=== PATIENT | male | born 1955 | race Caucasian/White ===

== ENCOUNTER 2018-10-01 11:12 | Inpatient (IN) | payer BC ==
[~2018-10-01] VITALS: Ht 175.3 cm; Wt 84.1 kg
[2018-10-01] MEDS ORDERED: normal saline 1000ML IV soln IVB ONE ×2 (12:15→12:25)
[2018-10-01] MEDS ORDERED: ondansetron/PF 4mg/2ml inj IV ONE ×2 (12:15→12:25)
[2018-10-01] MEDS: morphine 4 MG/ML inj SYRINge IV PRN ×2 (12:33→15:04)
[2018-10-01 12:39] LABS: BASOPHILS % (AUTO) 0.3 % (0-1); EOSINOPHILS % (AUTO) 0.2 % (0-6); HEMATOCRIT 33.9 % (42.0-52.0); HEMOGLOBIN 11.5 g/dl (14.0-17.9); LYMPHOCYTES # (AUTO) 0.5 X10'3 (1.1-4.8); LYMPHOCYTES % (AUTO) 5.9 % (21-51); MEAN CORPUSCULAR HEMOGLOBIN 28.1 PG (27.0-31.0); MEAN CORPUSCULAR HGB CONC 33.8 % (33.0-36.5); MEAN CORPUSCULAR VOLUME 83.2 FL (78-98); MEAN PLATELET VOLUME 6.8 FL (7.4-10.4); MONOCYTES # (AUTO) 0.6 X10'3 (0-0.9); MONOCYTES % (AUTO) 7.4 % (2-12); NEUTROPHILS # (AUTO) 7.2 X10'3 (1.8-7.7); NEUTROPHILS % (AUTO) 86.2 % (42-75); PLATELET COUNT 231 X10'3 (140-440); RED BLOOD COUNT 4.08 X10'6 (4.70-6.10); RED CELL DISTRIBUTION WIDTH 17.6 % (11.5-14.5); WHITE BLOOD COUNT 8.3 X10'3 (4.5-11.0)
[2018-10-01 13:01] LABS: ALANINE AMINOTRANSFERASE 24 U/L (12-78); ALBUMIN 3.6 G/DL (3.4-5.0); ALBUMIN/GLOBULIN RATIO 0.9 (1.1-1.5); ALKALINE PHOSPHATASE 806 IU/L (46-116); ANION GAP 22 (8-16); ASPARTATE AMINO TRANSFERASE 16 U/L (10-37); BILIRUBIN,TOTAL 0.5 MG/DL (0.1-1.0); BLOOD UREA NITROGEN 81 MG/DL (7-18); BUN/CREATININE RATIO 7.6 (5.4-32.0); CALCIUM 8.7 MG/DL (8.5-10.1); CHLORIDE 94 MMOL/L (99-107); CREATININE 10.69 MG/DL (0.60-1.10); GLUCOSE 123 MG/DL (70-104); LIPASE 213 U/L (73-393); POTASSIUM 5.9 MMOL/L (3.5-5.1); SODIUM 132 MMOL/L (135-145); TOTAL CARBON DIOXIDE 15.9 MMOL/L (24-32); TOTAL PROTEIN 7.8 G/DL (6.4-8.2); eGFR 5 ML/MIN
[2018-10-01 13:33] LABS: CLARITY,URINE CLEAR (Clear); COLOR,URINE STRAW (Yellow); GLUCOSE, URINE NEGATIVE (Neg); KETONES,URINE TRACE mg/dl (Neg); LEUKOCYTE ESTERASE ,URINE NEGATIVE (Neg); NITRITES, URINE NEGATIVE (Neg); OCCULT BLOOD,URINE SMALL (Neg); PH,URINE 5.5 (4.8-8.0); PROTEIN,URINE NEGATIVE (Neg); UROBILINOGEN,URINE 0.2 E.U/dL (0.2-1.0)
[2018-10-01 13:40] LABS: UA COLLECTION TYPE CLN CATCH MIDSTREAM
[2018-10-01 13:43] LABS: BACTERIA,URINE FEW /HPF (Neg); MUCUS STRANDS NONE SEEN /LPF (Neg); RBC,URINE 0-2 /HPF (0-2); SQUAMOUS EPITHELIAL CELL,UR FEW /LPF (FEW); WBC,URINE 0-4 /HPF (0-4)
[2018-10-01] MEDS ORDERED: LIDOcaine 2% 10ml TOPICAL JELLY (Urojet) MM ONE (14:05)
[2018-10-01] MEDS ORDERED: ondansetron/PF 4mg/2ml inj IV PRN (14:20)
[2018-10-01] MEDS ORDERED: acetaminophen 325mg tablet PO PRN (14:20)
[2018-10-01] MEDS ORDERED: sodium polystyrene sulfonate 15gm/60ml oral suspension PO ONE (14:20)
[2018-10-01 14:55] LABS: ANISOCYTOSIS 2+; PLATELET ESTIMATE NORMAL; TOTAL CELLS COUNTED 100
[2018-10-01] MEDS: CefTRIAXone/D5W-Rocephin 1gm 50 ML IV SCH (14:55)
[2018-10-01] MEDS: tamsulosin 0.4mg capsule PO SCH ×2 (14:56→20:53)
[2018-10-01 15:09] LABS: UA EOSINOPHILS NO EOS /HPF
[2018-10-01 17:14] VITALS: BP 162/85
[2018-10-01] MEDS: famotidine 20mg tablet PO SCH (20:53)
[2018-10-01] MEDS: HYDROcodone/acetaminophen 5mg/325mg tablet PO PRN (20:54)
[2018-10-01] MEDS ORDERED: pneumococcal 23-VAL P-sac vacc 25 mcg/0.5ml vial IMVAC ONE (21:00)
[2018-10-01] MEDS ORDERED: FLU VACC QUAD 2018(5 YR UP)/PF 60 MCG/0.5 ML SYRINGE IM ONE (21:00)
[2018-10-01 22:00] VITALS: BP 130/67
[2018-10-02] MEDS: HYDROcodone/acetaminophen 5mg/325mg tablet PO PRN ×6 (01:09→22:12)
[2018-10-02 06:00] VITALS: BP 171/87
[2018-10-02 06:09] LABS: BASOPHILS % (AUTO) 0.3 % (0-1); EOSINOPHILS # (AUTO) 0.1 X10'3 (0-0.9); EOSINOPHILS % (AUTO) 1.3 % (0-6); HEMATOCRIT 26.6 % (42.0-52.0); HEMOGLOBIN 8.7 g/dl (14.0-17.9); LYMPHOCYTES # (AUTO) 0.4 X10'3 (1.1-4.8); LYMPHOCYTES % (AUTO) 9.5 % (21-51); MEAN CORPUSCULAR HEMOGLOBIN 27.6 PG (27.0-31.0); MEAN CORPUSCULAR HGB CONC 32.8 % (33.0-36.5); MEAN CORPUSCULAR VOLUME 84.2 FL (78-98); MEAN PLATELET VOLUME 6.2 FL (7.4-10.4); MONOCYTES # (AUTO) 0.5 X10'3 (0-0.9); MONOCYTES % (AUTO) 10.5 % (2-12); NEUTROPHILS # (AUTO) 3.7 X10'3 (1.8-7.7); NEUTROPHILS % (AUTO) 78.4 % (42-75); PLATELET COUNT 187 X10'3 (140-440); RED BLOOD COUNT 3.16 X10'6 (4.70-6.10); WHITE BLOOD COUNT 4.7 X10'3 (4.5-11.0)
[2018-10-02 06:18] LABS: ALBUMIN 2.8 G/DL (3.4-5.0); ANION GAP 11 (8-16); BLOOD UREA NITROGEN 37 MG/DL (7-18); BUN/CREATININE RATIO 14.4 (5.4-32.0); CALCIUM 8.7 MG/DL (8.5-10.1); CHLORIDE 108 MMOL/L (99-107); CREATININE 2.57 MG/DL (0.60-1.10); GLUCOSE 106 MG/DL (70-104); POTASSIUM 4.3 MMOL/L (3.5-5.1); SODIUM 141 MMOL/L (135-145); TOTAL CARBON DIOXIDE 22.3 MMOL/L (24-32); eGFR 25 ML/MIN
[2018-10-02] MEDS: CefTRIAXone/D5W-Rocephin 1gm 50 ML IV SCH (07:44)
[2018-10-02 08:55] VITALS: BP 171/83
[2018-10-02 10:00] VITALS: BP 125/71
[2018-10-02] MEDS ORDERED: NO HOME MEDS (12:30)
[2018-10-02 14:08] LABS: % IRON SATURATION 16 % (11-46); IRON 36 UG/DL (53-167); TOTAL IRON BINDING CAPACITY 227 UG/DL (259-388)
[2018-10-02 18:00] VITALS: BP 160/85
[2018-10-02] MEDS: tamsulosin 0.4mg capsule PO SCH (20:19)
[2018-10-02] MEDS: famotidine 20mg tablet PO SCH (20:19)
[2018-10-02] MEDS: lactobacillus rhamnosus 10,000 MMU CELLS/CAPSULE PO SCH (20:19)
[2018-10-02] MEDS: metoprolol tartrate 12.5mg (1/2 tablet) PO SCH (20:22)
[2018-10-02 22:19] VITALS: BP 134/71
[2018-10-03] MEDS: HYDROcodone/acetaminophen 5mg/325mg tablet PO PRN (05:25)
[2018-10-03 06:00] VITALS: BP 168/80
[2018-10-03 07:09] LABS: BASOPHILS % (AUTO) 0.4 % (0-1); EOSINOPHILS # (AUTO) 0.1 X10'3 (0-0.9); EOSINOPHILS % (AUTO) 1.3 % (0-6); HEMATOCRIT 27.2 % (42.0-52.0); HEMOGLOBIN 8.9 g/dl (14.0-17.9); LYMPHOCYTES # (AUTO) 0.4 X10'3 (1.1-4.8); LYMPHOCYTES % (AUTO) 6.6 % (21-51); MEAN CORPUSCULAR HEMOGLOBIN 27.7 PG (27.0-31.0); MEAN CORPUSCULAR HGB CONC 32.8 % (33.0-36.5); MEAN CORPUSCULAR VOLUME 84.5 FL (78-98); MEAN PLATELET VOLUME 6.4 FL (7.4-10.4); MONOCYTES # (AUTO) 0.5 X10'3 (0-0.9); MONOCYTES % (AUTO) 9.2 % (2-12); NEUTROPHILS # (AUTO) 4.5 X10'3 (1.8-7.7); NEUTROPHILS % (AUTO) 82.5 % (42-75); PLATELET COUNT 180 X10'3 (140-440); RED BLOOD COUNT 3.22 X10'6 (4.70-6.10); RED CELL DISTRIBUTION WIDTH 17.8 % (11.5-14.5); WHITE BLOOD COUNT 5.5 X10'3 (4.5-11.0)
[2018-10-03 07:28] LABS: ALBUMIN 2.8 G/DL (3.4-5.0); ANION GAP 9 (8-16); BLOOD UREA NITROGEN 18 MG/DL (7-18); BUN/CREATININE RATIO 17.1 (5.4-32.0); CALCIUM 8.7 MG/DL (8.5-10.1); CHLORIDE 106 MMOL/L (99-107); CREATININE 1.05 MG/DL (0.60-1.10); GLUCOSE 116 MG/DL (70-104); POTASSIUM 4.2 MMOL/L (3.5-5.1); SODIUM 140 MMOL/L (135-145); TOTAL CARBON DIOXIDE 24.7 MMOL/L (24-32); eGFR 71 ML/MIN
[2018-10-03] MEDS: CefTRIAXone/D5W-Rocephin 1gm 50 ML IV SCH (07:33)
[2018-10-03] MEDS: lactobacillus rhamnosus 10,000 MMU CELLS/CAPSULE PO SCH (07:34)
[2018-10-03] MEDS: metoprolol tartrate 12.5mg (1/2 tablet) PO SCH (07:35)
[2018-10-03 08:21] LABS: % FREE PSA >4.6 % (.); PSA, FREE >50.00 ng/mL
[2018-10-03 10:00] VITALS: BP 135/76
[2018-10-03] MEDS ORDERED: TAMS0.4C32 PO (12:17)
[2018-10-03] MEDS ORDERED: METO25TA6 PO (12:17)
[2018-10-03 15:34] LABS: OCCULT BLOOD STOOL NEGATIVE (Neg)
== END 2018-10-03 15:00 | disposition home or self-care (01) | DRG 690 ==
LOC: ER 11:13 → EDBD 11:13 → ORTHO 4S 14:20 → CMPBEDREQ 19:43
PROVIDERS: ADMIT Internal Medicine; ATTEND Internal Medicine
PROC: 3E0234Z Introduction of Serum, Toxoid and Vaccine into Muscle, Percutaneous Approach (ICD-10-PCS; principal; 2018-10-02)
PROC: 3E02340 Introduction of Influenza Vaccine into Muscle, Percutaneous Approach (ICD-10-PCS; 2018-10-02)
DX: N13.6 Pyonephrosis (principal); N17.9 Acute kidney failure, unspecified; E87.5 Hyperkalemia; D64.9 Anemia, unspecified; K57.30 Diverticulosis of large intestine without perforation or abscess without bleeding; R31.0 Gross hematuria; R33.9 Retention of urine, unspecified; N18.9 Chronic kidney disease, unspecified; I12.9 Hypertensive chronic kidney disease with stage 1 through stage 4 chronic kidney disease, or unspecified chronic kidney disease; R97.20 Elevated prostate specific antigen [PSA]; Z23 Encounter for immunization
CPT/HCPCS: 36415; 74176; 76775; 80048; 80053; 81001; 82272; 82570; 83540; 83550; 83690; 84153; 84154; 84300; 85025; 87070; 87207; 96361; 96374; 99285; G0378; J0696; J2270; J2405; Q2037